=== PATIENT | male | born 2000 | race Caucasian/White ===

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

== ENCOUNTER 2024-05-18 18:07 | Emergency (ER) | payer BC ==
[~2024-05-18] VITALS: Ht 180.3 cm; Wt 84.0 kg
[2024-05-18] MEDS ORDERED: HYDROCHLOROT25 MG PO (18:27)
[2024-05-18 18:50] LABS: URINE BILIRUBIN - DIPSTICK Negative (NEGATIVE); URINE BLOOD DIPSTICK Negative (NEGATIVE); URINE GLUCOSE - DIPSTICK Negative (NEGATIVE); URINE KETONE Negative (NEGATIVE); URINE LEUK ESTERASE Negative (NEGATIVE); URINE NITRITE - DIPSTICK Negative (Negative); URINE PH 5.5 (4.5-8.0); URINE PROTEIN - DIPSTICK Trace mg/dL (NEG-TRACE); URINE UROBILINOGEN - DIPSTICK 0.2 E.U./dL (0.2)
[2024-05-18 18:51] LABS: URINE COLOR Yellow
[2024-05-18 18:51] LABS: BASO% 0.5 % (0-3); EOS% 1.1 % (0-8); IMMATURE GRANULOCYTES 0.2 % (0.0-5.0); LYMPH% 24.5 % (15-41); MEAN CORPUSCULAR HGB 29.5 pG CALC (26.0-32.0); MEAN CORPUSCULAR HGB CONC 35.6 g/dL CAL (32.0-36.0); MONO% 11.9 % (2-13); NEUT# 4.97 thou/uL (1.82-7.42); NEUT% 61.8 % (42-76); RED BLOOD COUNT 5.19 mill/uL (4.70-6.10); RED CELL DISTRI WIDTH 11.6 % (11.5-15.5)
[2024-05-18 18:52] LABS: HEMOGLOBIN 15.3 g/dl (14.0-18.0); MEAN CELL VOLUME 82.9 fL CALC (80.0-100.0)
[2024-05-18 19:01] LABS: ALBUMIN 4.8 g/dL (3.2-5.0); BILIRUBIN, TOTAL 0.8 mg/dL (0.2-1.3); CREATININE 1.1 mg/dL (0.7-1.3); TOTAL PROTEIN 8.2 g/dL (6.3-8.2)
[2024-05-18 19:02] LABS: POTASSIUM 3.1 mmol/l (3.5-5.1)
[2024-05-18] MEDS ORDERED: POTASSIUM CHLORIDE 20 MEQ/TAB PO ONE (19:20)
[2024-05-18] MEDS ORDERED: MAGNESIUM OXIDE 400 MG/TAB PO ONE (19:20)
[2024-05-18 19:56] VITALS: BP 152/99
[2024-05-18 20:04] VITALS: BP 152/99
== END 2024-05-18 20:11 | disposition home or self-care (01) | DRG 392 ==
LOC: ED 18:07
PROVIDERS: Family Medicine
DX: R10.9 Unspecified abdominal pain (principal); R16.1 Splenomegaly, not elsewhere classified